=== PATIENT | male | born 1965 | race Caucasian/White ===

== ENCOUNTER → 2016-07-03 | Outpatient (CLI) | payer BC ==
[2016-07-03 15:30] LABS: HEMOGLOBIN 16.2 gm/dl (14.0-17.5); RED BLOOD COUNT 5.12 M/UL (4.20-5.50); WHITE BLOOD COUNT 8.6 K/UL (4.5-11.0)
[2016-07-03 15:46] LABS: BUN/CREATININE RATIO 12 (0-10)
== END ==
LOC: LAB 14:57
PROVIDERS: Internal Medicine
DX: Z12.5 Encounter for screening for malignant neoplasm of prostate (principal); R73.09 Other abnormal glucose; K21.0 Gastro-esophageal reflux disease with esophagitis; E78.5 Hyperlipidemia, unspecified
CPT/HCPCS: 36415; 80053; 80061; 83036; 84439; 84443; 85025

== ENCOUNTER → 2021-07-24 | Outpatient (CLI) | payer BC ==
[2021-07-24 09:59] LABS: HEMOGLOBIN 16.8 gm/dl (14.0-17.5); RED BLOOD COUNT 5.25 M/UL (4.20-5.50); WHITE BLOOD COUNT 8.7 K/UL (4.5-11.0)
[2021-07-24 10:44] LABS: BUN/CREATININE RATIO 11 (0-10)
[2021-07-25 08:12] LABS: VITAMIN D, 25-HYDROXY 36.3 ng/mL (30.0-100.0)
[2021-07-27 04:08] LABS: FOLATE (FOLIC ACID), SERUM 17.8 ng/mL (>3.0)
== END ==
LOC: LAB 09:38
PROVIDERS: Internal Medicine
DX: R53.83 Other fatigue (principal); K21.9 Gastro-esophageal reflux disease without esophagitis; E78.5 Hyperlipidemia, unspecified; I10 Essential (primary) hypertension; R73.01 Impaired fasting glucose; Z51.81 Encounter for therapeutic drug level monitoring; Z79.899 Other long term (current) drug therapy
CPT/HCPCS: 36415; 80053; 80061; 82607; 82746; 83036; 83735; 84439; 84443; 85025

== ENCOUNTER → 2021-07-30 | Outpatient (CLI) | payer BC | LOC: KOH-I 13:56 | DX: M25.561 Pain in right knee (principal); M25.562 Pain in left knee; M25.462 Effusion, left knee; M25.461 Effusion, right knee | CPT/HCPCS: 73562 ==

== ENCOUNTER → 2021-09-10 | Outpatient (CLI) | payer BC | LOC: EXRD 09-01 09:00 | DX: K76.0 Fatty (change of) liver, not elsewhere classified (principal) | CPT/HCPCS: 76700 ==

== ENCOUNTER → 2022-01-11 | Outpatient (CLI) | payer BC ==
[2022-01-11 11:52] LABS: HEMOGLOBIN 15.8 gm/dl (14.0-17.5); RED BLOOD COUNT 4.94 M/UL (4.20-5.50); WHITE BLOOD COUNT 8.2 K/UL (4.5-11.0)
[2022-01-11 22:06] LABS: BUN/CREATININE RATIO 13 (0-10)
[2022-01-12 07:12] LABS: CHOLESTEROL, TOTAL 160 mg/dL (100-199); FERRITIN 82 ng/mL (30-400); HDL CHOLESTEROL 41 mg/dL (>39); LDL CHOLESTEROL CALC 99 mg/dL (0-99); LDL/HDL RATIO 2.4 ratio (0.0-3.6); PROSTATE-SPECIFIC AG 0.9 ng/mL (0.0-4.0); T. CHOL/HDL RATIO 3.9 ratio (0.0-5.0); TRIGLYCERIDES 108 mg/dL (0-149)
[2022-01-12 07:12] LABS: HBSAG SCREEN Negative (Negative); HCV AB <0.1 (0.0-0.9); HEP A AB, IGM Negative (Negative); HEP B CORE AB, IGM Negative (Negative)
[2022-01-12 08:13] LABS: ALPHA-1-ANTITRYPSIN, SERUM 149 mg/dL (101-187)
[2022-01-12 08:13] LABS: ESTIM. AVG GLU (EAG) 117 mg/dL (.); FOLATE (FOLIC ACID), SERUM >20.0 ng/mL (>3.0); HEMOGLOBIN A1C 5.7 % (4.8-5.6); IRON BIND.CAP.(TIBC) 323 ug/dL (250-450); IRON SATURATION 38 % (15-55); IRON, SERUM 124 ug/dL (38-169); UIBC 199 ug/dL (111-343)
[2022-01-12 14:14] LABS: MITOCHONDRIAL (M2) ANTIBODY <20.0 Units (0.0-20.0)
== END ==
LOC: LAB 11:01
PROVIDERS: Internal Medicine; Internal Medicine Gastroenterology
DX: Z12.5 Encounter for screening for malignant neoplasm of prostate (principal); Z51.81 Encounter for therapeutic drug level monitoring; R79.89 Other specified abnormal findings of blood chemistry; R94.5 Abnormal results of liver function studies; F17.200 Nicotine dependence, unspecified, uncomplicated
CPT/HCPCS: 36415; 80053; 80061; 80074; 82103; 82607; 82728; 82746; 83036; 83540; 83550; 84153; 84439; 84443; 85025; 86038